=== PATIENT | female | born 1965 | race Caucasian/White ===

== ENCOUNTER 2024-02-26 16:07 | Emergency (ER) | payer BC, MEDICARE ==
[2024-02-26 16:37] VITALS: BP 138/84; PULSE 89; RESP 20; TEMP 98.7
[2024-02-26 16:37] LABS: Glucose,Whole Blood 436 mg/dL (70-110)
== END 2024-02-26 16:39 | disposition left against medical advice (07) ==
LOC: SUPCPDRO 16:07 → EC 16:07
DX: Z53.29 Procedure and treatment not carried out because of patient's decision for other reasons (principal)
CPT/HCPCS: 36415; 99499

== ENCOUNTER → 2024-03-05 | Outpatient (CLI) | payer MEDICARE ==
[2024-03-05 16:10] LABS: Basophils # (A) 0.06 X 10*3/uL (0.00-0.10); Basophils % (A) 0.6 %; Eosinophils # (A) 0.31 X 10*3/uL (0.04-0.35); Eosinophils % (A) 3.1 %; HCT 42.3 % (37.2-46.3); HGB 14.1 g/dL (12.0-15.0); Lymphocytes % (A) 23.3 %; MCH 30.1 pg (27.0-32.0); MCHC 33.3 g/dL (32.0-37.0); MCV 90.4 FL (80.0-97.0); Mean Platelet Volume 10.4 FL (9.5-12.2); Monocytes # (A) 0.57 X 10*3/uL (0.20-1.00); Monocytes % (A) 5.8 %; NRBC Per 100 WBC 0 X 10*3/uL (0.00-0.01); Neutrophils # (A) 6.54 X 10*3/uL (1.80-7.70); Neutrophils % (A) 66.4 %; Platelet Count 337 X 10*3/uL (140-440); RBC 4.68 X 10*6/uL (4.10-5.20); RDW 13.5 % (11.5-14.5); WBC 9.86 X 10*3/uL (4.50-10.00)
[2024-03-05 16:35] LABS: ALT 6 U/L (8-44); AST 12 U/L (13-35); Albumin 3.9 g/dL (3.8-4.9); Alkaline Phosphatase 115 U/L (41-126); BUN/Creat Ratio 12.36 Ratio (12.00-20.00); Blood Urea Nitrogen 13.6 mg/dL (9.0-27.0); Calcium 9.6 mg/dL (8.7-10.3); Chloride 107 mmol/L (96-109); Globulin 2.6 g/dL (1.6-3.3); Glucose 70 mg/dL (70-110); LDL Cholesterol,Calculated 144.2 mg/dL (0.0-131.0); Potassium 4.8 mmol/L (3.5-5.5); Sodium 141 mmol/L (135-145); Total Bilirubin <0.2 mg/dL (0.3-1.2); Total Protein 6.5 g/dL (6.2-8.2)
== END | disposition home or self-care (01) ==
LOC: LABWHC1 11:00
PROVIDERS: ATTEND Nurse Practitioner Family
DX: Z68.30 Body mass index [BMI] 30.0-30.9, adult (principal); I10 Essential (primary) hypertension; E78.5 Hyperlipidemia, unspecified; F43.23 Adjustment disorder with mixed anxiety and depressed mood; E11.43 Type 2 diabetes mellitus with diabetic autonomic (poly)neuropathy; R53.82 Chronic fatigue, unspecified
CPT/HCPCS: 36415; 80053; 80061; 84443; 85025

== ENCOUNTER → 2024-10-21 | Outpatient (CLI) | payer MEDICARE ==
[2024-10-21 13:03] LABS: African American GFR (CKD) 53 (>60 ml/min/1.73 sqM); Blood Urea Nitrogen 16 mg/dL (7-17); Non-African American GFR(CKD) 46 (>60 ml/min/1.73 sqM)
--- NOTE | 2024-10-21 13:49 | CT ---
CT thorax with contrast HISTORY: Pulmonary nodule COMPARISON: None TECHNIQUE: Multiple axial images were obtained through thorax following IV contrast material. FINDINGS: There are a few sub-5 mm nodules in the right upper and lower lobe. There is a micronodule in the lef t upper lobe. There is an enlarged 15 mm right paratracheal lymph node and there are 2 enlarged right hilar lymph n odes one measuring 19 mm and the other measuring 15 mm. The great vessels chest are normal. There is no airspace consolidation. There are mild chronic interstitial changes in the right middle l obe. There is no pleural effusion or pneumothorax. Limited scanning through the upper abdomen reveals no gross abnormality. There are no focal osseous lesions. IMPRESSION: 1. Mediastinal and right hilar adenopathy and further evaluation or short-term follow-up is indicated . 2. A few sub-6 mm nodules in the right upper and lower lobe. 3. No pleural effusion or airspace consolidation [facility], , 10/21/2024 1:47 PM
== END | disposition home or self-care (01) ==
LOC: RADCTMAIN 12:24
PROVIDERS: ATTEND Family Medicine
DX: R91.8 Other nonspecific abnormal finding of lung field (principal); R59.0 Localized enlarged lymph nodes
CPT/HCPCS: 82565; 84520; 71260; 36415; Q9967

== ENCOUNTER → 2024-11-03 | Outpatient (CLI) | payer MEDICARE | END | disposition home or self-care (01) | LOC: RADMAMWWP 13:26 | PROVIDERS: ATTEND Internal Medicine Geriatric Medicine | DX: Z53.9 Procedure and treatment not carried out, unspecified reason (principal) ==